=== PATIENT | female | born 1970 | race Caucasian/White ===

== ENCOUNTER 2017-11-06 01:28 | Emergency (ER) | payer OTHER ==
[~2017-11-06] VITALS: Ht 162.6 cm; Wt 97.5 kg
[2017-11-06 01:32] VITALS: Ht 162.6 cm; Wt 97.5 kg
[2017-11-06 03:02] LABS: CALCIUM 8.9 mg/dL (8.5-10.1); CARBON DIOXIDE 26.1 mmol/L (21-32); CHLORIDE SERUM 105 mmol/L (98-107); CREATININE SERUM 0.8 mg/dL (0.6-1.0); GFR1 > 60 mL/min; GLUCOSE SERUM 136 mg/dL (74-106); POTASSIUM SERUM 4.1 mmol/L (3.5-5.1); SODIUM SERUM 141 mmol/L (136-145)
[2017-11-06 03:06] LABS: ALBUMIN 3.4 g/dL (3.4-5.0); ALKALINE PHOSPHATASE 69 U/L (46-116); ALT/SGPT 23 U/L (14-59); AST/SGOT 16 U/L (15-37); BILIRUBIN TOTAL 0.19 mg/dL (0.20-1.00); LIPASE 134 IU/L (73-393); TOTAL PROTEIN, SERUM 7.5 g/dL (6.4-8.2)
[2017-11-06 03:11] LABS: BASOPHIL % 0.5 % (0-2); PLATELET COUNT 287 x10^3mcL (130-400)
[2017-11-06 03:16] LABS: RED CELL DISTRIBUTION WIDTH 17.4 % (11.5-14.5)
[2017-11-06 05:10] VITALS: BP 133/67
== END 2017-11-06 05:10 | disposition home or self-care (01) ==
LOC: ED 01:28
PROVIDERS: Emergency Medicine
DX: R06.02 Shortness of breath (principal); R07.89 Other chest pain; I10 Essential (primary) hypertension; F41.9 Anxiety disorder, unspecified
CPT/HCPCS: 36415; Q0092

== ENCOUNTER 2018-04-08 20:28 | Emergency (ER) | payer OTHER ==
[~2018-04-08] VITALS: Ht 157.5 cm; Wt 92.6 kg
[2018-04-08 22:09] VITALS: Ht 157.5 cm; Wt 92.6 kg
[2018-04-08 23:27] LABS: BASOPHIL % 0.4 % (0-2); PLATELET COUNT 301 x10^3mcL (130-400)
[2018-04-08 23:34] LABS: CALCIUM 9.4 mg/dL (8.5-10.1); CARBON DIOXIDE 25.9 mmol/L (21-32); CHLORIDE SERUM 104 mmol/L (98-107); CREATININE SERUM 0.8 mg/dL (0.6-1.0); GFR1 > 60 mL/min; GLUCOSE SERUM 99 mg/dL (74-106); POTASSIUM SERUM 3.5 mmol/L (3.5-5.1); SODIUM SERUM 140 mmol/L (136-145)
[2018-04-08 23:38] LABS: ALKALINE PHOSPHATASE 83 U/L (46-116); ALT/SGPT 23 U/L (14-59); AST/SGOT 17 U/L (15-37); BILIRUBIN TOTAL 0.2 mg/dL (0.20-1.00); LIPASE 131 IU/L (73-393)
[2018-04-08 23:39] LABS: TOTAL PROTEIN, SERUM 8.5 g/dL (6.4-8.2)
[2018-04-08 23:47] LABS: RED CELL DISTRIBUTION WIDTH 32.6 % (11.5-14.5)
[2018-04-09 00:08] LABS: rbc morphology (normal/abnorm) ABNORMAL (NORMAL)
[2018-04-09 00:46] VITALS: BP 140/77
== END 2018-04-09 00:46 | disposition home or self-care (01) ==
LOC: ED 20:28
PROVIDERS: Emergency Medicine
DX: R10.10 Upper abdominal pain, unspecified (principal); R20.2 Paresthesia of skin; R63.0 Anorexia; I10 Essential (primary) hypertension; Z86.2 Personal history of diseases of the blood and blood-forming organs and certain disorders involving the immune mechanism
CPT/HCPCS: 36415; Q0092; Q0162

== ENCOUNTER 2018-05-17 19:03 | Emergency (ER) | payer OTHER ==
[~2018-05-17] VITALS: Ht 162.6 cm; Wt 92.0 kg
[2018-05-17 19:15] VITALS: Ht 162.6 cm; Wt 92.0 kg
[2018-05-17 20:34] LABS: PLATELET COUNT 240 x10^3mcL (130-400)
[2018-05-17 20:42] LABS: BASOPHIL % 0 % (0-2); RED CELL DISTRIBUTION WIDTH 24.6 % (11.5-14.5)
[2018-05-17 21:48] LABS: CALCIUM 8.9 mg/dL (8.5-10.1); CARBON DIOXIDE 24.6 mmol/L (21-32); CHLORIDE SERUM 97 mmol/L (98-107); CREATININE SERUM 0.8 mg/dL (0.6-1.0); GFR1 > 60 mL/min; GLUCOSE SERUM 121 mg/dL (74-106); POTASSIUM SERUM 3.4 mmol/L (3.5-5.1); SODIUM SERUM 131 mmol/L (136-145)
[2018-05-17 21:53] LABS: ALBUMIN 3.6 g/dL (3.4-5.0); ALKALINE PHOSPHATASE 74 U/L (46-116); ALT/SGPT 39 U/L (14-59); AST/SGOT 17 U/L (15-37); BILIRUBIN TOTAL 0.25 mg/dL (0.20-1.00); TOTAL PROTEIN, SERUM 7.7 g/dL (6.4-8.2)
[2018-05-17 22:20] VITALS: BP 127/66
== END 2018-05-17 22:20 | disposition home or self-care (01) ==
LOC: ED 19:03
PROVIDERS: Emergency Medicine
DX: F41.9 Anxiety disorder, unspecified (principal); I10 Essential (primary) hypertension; Z86.2 Personal history of diseases of the blood and blood-forming organs and certain disorders involving the immune mechanism
CPT/HCPCS: 36415